=== PATIENT | male | born 1955 | race Caucasian/White ===

== ENCOUNTER → 2018-09-26 | Outpatient (CLI) | payer OTHER | LOC: FIMAGING 14:31 | PROVIDERS: ATTEND Orthopaedic Surgery | DX: Z01.818 Encounter for other preprocedural examination (principal); M16.0 Bilateral primary osteoarthritis of hip; M25.452 Effusion, left hip; M17.12 Unilateral primary osteoarthritis, left knee; M47.9 Spondylosis, unspecified; K57.30 Diverticulosis of large intestine without perforation or abscess without bleeding; K42.9 Umbilical hernia without obstruction or gangrene; K40.90 Unilateral inguinal hernia, without obstruction or gangrene, not specified as recurrent ==

== ENCOUNTER 2018-10-04 05:44 | Inpatient (IN) | payer OTHER ==
[~2018-10-04 05:44] MED LIST: POVIDONE-IODINE 20 ML in SODIUM CL IRRIG SOLUTION 500 ML IRR ONE; ROPIVACAINE 0.2% 80 MG, EPINEPHrine 0.2 MG, KETOROLAC TROMETHAMINE 30 MG in SYRINGE 0 ML IU ONE; TRANEXAMIC ACID 1,000 MG in NS 100 ML IV ONE; TRANEXAMIC ACID 2,000 MG in NS 100 ML IV ONE
[2018-10-04] MEDS ORDERED: FAMOTIDINE 20 MG TAB PO ONE (06:03)
[2018-10-04] MEDS ORDERED: ACETAMINOPHEN 325 MG TAB PO ONE (06:03)
[2018-10-04] MEDS ORDERED: DEXAMETHASONE 4 MG/ML VIAL IVP ONE (06:03)
[2018-10-04] MEDS ORDERED: ceFAZolin 2 GM/DEXTROSE 100 ML IV ONE (06:03)
[2018-10-04] MEDS ORDERED: LR 1,000 ML IV ONE (06:04)
[2018-10-04] MEDS ORDERED: BUPIVACAINE/EPI 0.5% 30 ML SDV ONE (06:38)
--- NOTE | 2018-10-04 06:48 | PDHPUP ---
History & Physical Update H&P update statement: This history and physical update is based on an assessment of the patient which was completed after admission or registration (within 24 hours), but prior to the surgery/procedure. H&P update: H&P reviewed & patient examined, no change in patient's condition since H&P completed
[2018-10-04] MEDS ORDERED: MIDAZOLAM 2 MG/2 ML VIAL IVP ONE (06:57)
[2018-10-04] MEDS ORDERED: MIDAZOLAM 2 MG/2 ML VIAL ONE (06:58)
--- NOTE | 2018-10-04 06:58 | PDANEPAE ---
ANE History of Present Illness 63 yo for sarah ANE Past Medical History - Cardiovascular History Hx Hypertension: Yes Hx Arrhythmias: No Hx Chest Pain: No Hx Coronary Artery / Peripheral Vascular Disease: No Hx CHF / Valvular Disease: No Hx Palpitations: No Cardiovascular History Comment: pcp monitors bp - Pulmonary History Hx COPD: No Hx Asthma/Reactive Airway Disease: No Hx Recent Upper Respiratory Infection: No Hx Oxygen in Use at Home: No Hx Sleep Apnea: No Sleep Apnea Screening Result - Last Documented: Positive Pulmonary History Comment: gena triggers - Neurologic History Hx Cerebrovascular Accident: No Hx Seizures: No Hx Dementia: No - Endocrine History Hx Diabetes: No - Renal History Hx Renal Disorders: No - Liver History Hx Hepatic Disorders: No - Neurological & Psychiatric Hx Hx Neurological and Psychiatric Disorders: No - Cancer History Hx Cancer: No - Congenital Disorder History Hx Congenital Disorders: No - GI History Hx Gastrointestinal Disorders: Yes Gastrointestinal History Comment: reflux- uses otc ranitidine as needed - Other Health History Other Health History: wears glasses - Chronic Pain History Chronic Pain: Yes (left hip and knee) - Surgical History Prior Surgeries: ellie 2016. knee reconstruction early . knee scopes. hernia repair. broken nose repair as child ANE Review of Systems Review of Systems: - Exercise capacity METS (RN): 4 METS ANE Patient History - Allergies Allergies/Adverse Reactions: No Known Allergies Allergy (Verified 09/24/18 10:57) - Home Medications Home medications: home medication list seen and reviewed Home Medications: Aspirin [Aspirin 325 mg (*)] 975 mg PO BID PRN 09/19/18 [Last Taken Unknown] Lisinopril/Hydrochlorothiazide [Zestoretic 20-25 mg Tablet] 1 each PO DAILY@12 09/19/18 [Last Taken 10/03/18] Ibuprofen Q4-8PRN PRN 10/04/18 [Last Taken 10/02/18] Ranitidine HCl [Zantac] 10/04/18 [Last Taken 10/03/18] - NPO status NPO Since - Liquids (Date): 10/03/18 NPO Since - Liquids (Time): 21:00 NPO Since - Solids (Date): 10/03/18 NPO Since - Solids (Time): 18:00 - Anes Hx Anes Hx: no prior problems - Smoking Hx Smoking Status: Current some day smoker - Family Anes Hx Family Hx Anesthesia Complications: none ANE Labs/Vital Signs - Vital Signs Blood Pressure: 144/94 Heart Rate: 80 Respiratory Rate: 14 O2 Sat (%): 92 Height: 6 ft 2 in Weight: 104.326 kg ANE Physical Exam - Airway Neck exam: FROM Mallampati Score: Class 2 Mouth exam: normal dental/mouth exam - Pulmonary Pulmonary: no respiratory distress - Cardiovascular Cardiovascular: regular rate and rhythym - ASA Status ASA Status: II ANE Anesthesia Plan Anesthesia Plan: spinal
[2018-10-04] MEDS ORDERED: PROPOFOL/EMULSION 500 MG/50 ML BOTTLE IV ONE ×3 (07:07→09:13)
[2018-10-04] MEDS ORDERED: ONDANSETRON 4 MG/2 ML VIAL IVP PRN ×2 (09:35→09:58)
[2018-10-04] MEDS ORDERED: NALOXONE HCL 0.4 MG/ML INJ IVP PRN (09:35)
[2018-10-04] MEDS ORDERED: HYDROmorphONE/DILAUDID 2 MG/ML INJ IVP PRN (09:35)
[2018-10-04] MEDS ORDERED: fentaNYL 100 MCG/2 ML INJ IVP PRN (09:35)
[2018-10-04] MEDS ORDERED: METOCLOPRAMIDE 10 MG/2 ML VIAL IVP PRN (09:58)
[2018-10-04] MEDS ORDERED: POLYETHYLENE GLYCOL 3350 17 GM PKT PO PRN (09:58)
[2018-10-04] MEDS ORDERED: CYCLOBENZAPRINE 10 MG TAB PO PRN (09:58)
[2018-10-04] MEDS ORDERED: PROMETHAZINE HCL 25 MG SUPPR PR PRN (09:58)
[2018-10-04] MEDS ORDERED: LACTULOSE 20 GM/30 ML UDCUP PO PRN (09:58)
[2018-10-04] MEDS ORDERED: MAGNESIUM HYDROXIDE 30 ML UDCUP PO PRN (09:58)
[2018-10-04] MEDS ORDERED: diphenhydrAMINE 25 MG CAP PO PRN (09:58)
[2018-10-04] MEDS ORDERED: ONDANSETRON DISINTEGRATING 4 MG TAB PO PRN (09:58)
[2018-10-04] MEDS ORDERED: BISACODYL 10 MG SUPP PR PRN (09:58)
[2018-10-04] MEDS ORDERED: PROMETHAZINE HCL 25 MG/ML INJ IVP PRN (09:58)
[2018-10-04] MEDS ORDERED: TEMAZEPAM 15 MG CAP PO PRN (09:58)
[2018-10-04] MEDS ORDERED: DIPHENOXYLATE/ATROPINE LOMOTIL 1 TAB PO PRN (09:58)
[2018-10-04] MEDS ORDERED: LR 1,000 ML IV SCH (10:00)
--- NOTE | 2018-10-04 10:03 | POSTOPPROG ---
Post Op Note Date of Operation: 10/04/18 Surgeon: Garret Alvarado General Office Clerk: HARJINDER Erwin Anesthesiologist: Daquan Anesthesia: IV Sedation, Spinal Pre-op Diagnosis: L hip OA Post-op Diagnosis: same Procedure: L anterior BREANNE Inf/Abcess present in the surg proc area at time of surgery?: No EBL: 100-500 (300) Drains: Hemovac
--- NOTE | 2018-10-04 10:06 | POSTANESTH ---
Post Anesthetic Evaluation Cardiovascular Status: Normal, Stable Respiratory Status: Normal, Stable Level of Consciousness/Mental Status: Can Participate in Eval Pain Control: Adequate, Prn Tx Ordered Nausea/Vomiting Control: Adequate, Prn Tx Ordered Complications Possibly Related to Anesthesia: None Noted
[2018-10-04] MEDS: ACETAMINOPHEN 325 MG TAB PO SCH ×3 (11:37→23:41)
[2018-10-04] MEDS ORDERED: HYDROCHLOROTHIAZIDE 25 MG TAB PO SCH (12:00)
[2018-10-04] MEDS ORDERED: LISINOPRIL 20 MG TAB PO SCH (12:00)
--- NOTE | 2018-10-04 12:34 | PDMN ---
Medical Necessity Medical necessity: Pt meets inpt criteria per MD order and [facility], [place] Arthroplasty, Medicare inpt only list. 63 y/o w/L hip OA admitted for LTHA and post-op care.
[2018-10-04] MEDS: oxyCODONE IR 5 MG TAB PO PRN ×3 (13:05→23:44)
[2018-10-04] MEDS: ceFAZolin 2 GM/DEXTROSE 100 ML IV SCH ×2 (15:41→23:41)
[2018-10-04] MEDS: FAMOTIDINE 20 MG TAB PO SCH (20:07)
[2018-10-04] MEDS: ASPIRIN 81 MG CHEWABLE TAB PO SCH (20:07)
[2018-10-04] MEDS: SENNOSIDES/DOCUSATE SODIUM TAB PO SCH (20:07)
[2018-10-05] MEDS: ACETAMINOPHEN 325 MG TAB PO SCH (05:46)
[2018-10-05 07:40] VITALS: BP 115/65
--- NOTE | 2018-10-05 07:40 | SOAPPROG ---
SOAP Progress Note Assessment/Plan: Assessment: Postop day 1 status post left anterior approach total hip arthroplasty Plan: Weight-bearing as tolerated with assistance, PT/OT DVT prophylaxis: SCDs, Elvis Hose, aspirin 81 mg twice daily Incentive spirometry 10 times per hour Disposition: Home this morning after physical therapy 10/05/18 07:37 Subjective: No acute events. Pain well controlled. Denies fevers chills nausea vomiting chest pain shortness of breath numbness or tingling. Ambulated yesterday without difficulty Objective: Vital Signs Temp Pulse Resp BP Pulse Ox 36.8 C 79 14 90/60 L 94 10/05/18 04:00 10/05/18 04:00 10/05/18 04:00 10/05/18 04:00 10/05/18 04:00 Laboratory Results 10/05/18 05:03 10/04/18 10/05/18 10/06/18 05:59 05:59 05:59 Intake Total 2305 Output Total 995 Balance 1310 Awake alert and oriented x3 He easy nonlabored breathing Left thigh: Dressing clean dry intact no erythema drainage or signs infection Thigh and calf compartments soft compressible Drain removed drain site clean dry and intact Sensation intact to light touch L4-S1 Motor intact to EHL FHL tibialis anterior gastrocsoleus Palpable DP PT pulses - Pending Discharge Pending Discharge Within 24 Hours: Yes Pending Discharge Date: 10/05/18 Pending Discharge Time: 11:00 ICD10 Worksheet Patient Problems: Problems Problem Status Onset Osteoarthritis of left hip Acute
[2018-10-05] MEDS: SENNOSIDES/DOCUSATE SODIUM TAB PO SCH (09:23)
[2018-10-05] MEDS: ASPIRIN 81 MG CHEWABLE TAB PO SCH (09:23)
[2018-10-05] MEDS: FAMOTIDINE 20 MG TAB PO SCH (09:23)
[2018-10-05] MEDS: oxyCODONE IR 5 MG TAB PO PRN (09:29)
--- NOTE | 2018-10-05 09:35 | ASMTLACE ---
LACE Length of stay for Answers: 2 days current admission Acuity / Level of Answers: Yes Care: Did the patient have an inpatient admission? Comorbidities - select Answers: Other Notes: HTN all that apply # of Emergency department Answers: 0 visits in the last 6 months Score: 6 Date Signed: 10/05/2018 09:34 AM Electronically Signed By:UMESH Guzman
--- NOTE | 2018-10-05 09:37 | ASMTCMCOM ---
CM Note CM Note Notes: Pt had planned hip surgery, resides with spouse. PT rec outpatient. No CM d/c needs identified. Date Signed: 10/05/2018 09:36 AM Electronically Signed By:UMESH Guzman
--- NOTE | 2018-10-05 12:58 | GOP ---
DATE OF OPERATION: 10/04/2018 SURGEON: Garret Alvarado MD AIR QUALITY SPECIALIST: Ricky Erwin, CSA, LSA. Water Pump Installer was required for the procedure due to the complex ity of the case and the patient's condition for positioning, prepping and draping, retraction, closur e. ANESTHESIA: Spinal and IV sedation. PREOPERATIVE DIAGNOSIS: Left hip osteoarthritis. POSTOPERATIVE DIAGNOSIS: Left hip osteoarthritis. PROCEDURE PERFORMED: Left hip anterior approach hip replacement, MAKOplasty robotic guidance, fluoro scopic supervision, greater than 1 hour. FINDINGS: SPECIMENS: Femoral head. ESTIMATED BLOOD LOSS: 300 cc. INDICATIONS: Patient has severe hip osteoarthritis that failed to improve with conservative measures significantly affecting activities of daily living including walking. The patient elected to procee d with anterior approach hip replacement using MAKOplasty robotic guidance. After extensive discussi on of all possible approaches as well as the risks, benefits, pros, cons, expected recovery, and prog nosis, the patient verbalized understanding of the risks and benefits of the procedure and signed the informed consent prior to the procedure. DESCRIPTION OF PROCEDURE: The patient was seen in the holding area. Operative consent and extremity were signed. The patient was then taken to the operating room. After smooth induction of spinal an esthesia and sedation, he was placed in the supine position on the operating table with the arch tabl e extension. Hip and contralateral iliac crests were prepped and draped in the usual sterile fashion . The operative site was confirmed by signature. Operative time-out was performed. Allergies revie wed. Antibiotics and TXA administered. Three pins were placed in the contralateral iliac crest with the pelvic array well fixed. It was wel l visualized by the robot. The desired incision for the anterior approach on the hip was infiltrated with 0.25% Marcaine with epinephrine. Incision was made with a 10 blade and carried through subcuta neous tissue to identify the TFL fascia. This was incised in line with the incision. The TFL was re tracted laterally. The lateral femoral circumflex vessels were coagulated with Aquamantys. The deep TFL fascia was incised and the vastus lateralis was clearly exposed. Pre capsular fat was excised. A T-shaped capsulotomy was performed. The capsule was preserved for later closure. The femoral neck cut was then performed based on pre-templated calculations and imaging. The femoral head was excised with a corkscrew. The acetabulum was exposed in standard fashion. The labrum, pulvinar and soft tissue were excised sh arply. The pelvic checkpoint was placed in the AIIS. Acetabular registration was performed using e robot. Reaming was then performed using the robot to the desired size. The cup was impacted into place and again with robotic guidance system, good fixation was achieved. The cup was irrigated and dried, and the liner was impacted into place achieving good locking within the cup. The femur was then exposed in standard fashion. Femur was broached to the desired size. Trial neck and head were attached, and the hip was relocated. The position of all components was confirmed fluo roscopically. The foot was externally rotated to 90 degrees, extended to the floor and stability was confirmed. The hip was then dislocated. Trial components were removed. The stem was impacted into place. The trunnion was cleaned and dried and the head was impacted down into the trunnion. The wo und was copiously irrigated including the cup with pulse lavage, and the hip was once again relocated . Component placement was confirmed with fluoroscopy. Checkpoints were removed. Pelvic array was removed. Wound was copiously irrigated with sterile solu tion. Dilute Betadine was then irrigated into the wound, allowed to soak for 3 minutes before being irrigated out. Joint cocktail was injected into the soft tissues. The pre capsular and indirect hea d of the rectus femoris were repaired with #1 Vicryl sutures. A drain was placed exiting distally an d laterally from deep to TFL. The wound was then closed in layers with 0 Quill in the TFL fascia and deep subcutaneous fat, 3-0 Versalok in the dermis. The wound was dressed with sterile dressing. [facility] patient was safely awakened, taken to recovery room in stable condition. All critical portions of the procedure performed by myself, Dr. Alvarado. This operative note was create d by myself, and I was immediately available for emergency cross-coverage at all times. DRAINS: Hemovac x1. COMPLICATIONS: None. IMPLANTS: Include a Trident 2 hemispherical acetabular shell size 62 with a 0 degree, 36 mm polyethy dajuan liner; Accolade 2, size 9 stem, 127 degree offset; 36 mm +5 mm head. /[id number]/MODL
--- NOTE | 2018-10-05 12:58 | GDS ---
ADMITTING DIAGNOSIS: Left hip osteoarthritis. DISCHARGE DIAGNOSIS: Left hip osteoarthritis. PROCEDURE PERFORMED: Left anterior approach total hip arthroplasty with MAKOplasty robotic guidance. HOSPITAL COURSE: Patient was admitted on the above date, underwent the above procedure, and tolerate d it well. He was admitted for DVT prophylaxis, antibiotic prophylaxis, and pain control. He receiv ed aspirin 81 mg b.i.d., SCDs, and SHEEBA hose for DVT prophylaxis and was given perioperative antibioti cs. He participated with Physical Therapy on postoperative day 1 and is cleared for discharge home. DISCHARGE DISPOSITION: Home. CONDITION UPON DISCHARGE: Stable. FOLLOWUP: In 2 weeks. /[id number]/MODL
== END 2018-10-05 10:59 | disposition home or self-care (01) | DRG 470 ==
LOC: F3N 05:44
PROVIDERS: ADMIT Orthopaedic Surgery; ATTEND Orthopaedic Surgery
PROC: 8E0Y0CZ Robotic Assisted Procedure of Lower Extremity, Open Approach (ICD-10-PCS; principal; 2018-10-04 07:15)
PROC: 0SRB04A Replacement of Left Hip Joint with Ceramic on Polyethylene Synthetic Substitute, Uncemented, Open Approach (ICD-10-PCS; principal; 2018-10-04 07:15)
DX: M16.12 Unilateral primary osteoarthritis, left hip (principal); I10 Essential (primary) hypertension; G47.33 Obstructive sleep apnea (adult) (pediatric); Z72.0 Tobacco use
CPT/HCPCS: 97116-GP; 97161-GP; 97166-GO; J0171; J0690; J1100; J1885; J2250; J2704; J2795